=== PATIENT | male | born 1950 | race Hispanic/Latino ===

== ENCOUNTER → 2018-10-02 | Outpatient (CLI) | payer MEDICARE ==
--- NOTE | 2018-10-02 10:00 | Diagnostic Imaging Report ---
TECHNIQUE: Magnetic resonance imaging of the RIGHT SHOULDER was performed WITHOUT injected contrast. COMPARISON: None available. HISTORY: Right shoulder pain, laceration of muscle FINDINGS: MUSCLES AND TENDONS: Rotator Cuff: Tendons: Large full-thickness tear of the supraspinatus and infraspinatus tendon with retraction to the glenohumeral joint and muscle atrophy predominantly involving the infraspinatus. Partial-thickness tearing of the subscapularis. Muscles: No focal muscle atrophy. Biceps Tendon: The long head of the biceps tendon is intact and within the intertubercular groove. GLENOHUMERAL JOINT: Glenoid Labrum: Posterior labral tearing. Articular Cartilage: Partial-thickness cartilage loss AC JOINT AND ACROMION: Mild hypertrophic degenerative changes of the acromioclavicular joint. Subacromial spurring. BONE: No acute fracture. SOFT TISSUES: Otherwise, the soft tissues appear unremarkable. IMPRESSION: Large full-thickness tear of the supraspinatus and infraspinatus tendon with retraction to the glenohumeral joint and atrophy predominantly involving the infraspinatus. High riding humeral head with subacromial spurring. 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 Signed by: Dr. Joel Heath M.D. on 10/02/2018 9:57 AM
== END ==
LOC: MRI 07:20
PROVIDERS: ATTEND Specialist
DX: S46.021A Laceration of muscle(s) and tendon(s) of the rotator cuff of right shoulder, initial encounter (principal)

== ENCOUNTER 2018-10-21 10:09 | Outpatient (RCR) | payer MEDICARE | END 2018-10-26 | LOC: PT 10:09 | PROVIDERS: ATTEND Specialist | DX: S46.021D Laceration of muscle(s) and tendon(s) of the rotator cuff of right shoulder, subsequent encounter (principal); M25.511 Pain in right shoulder; M62.81 Muscle weakness (generalized) ==

== ENCOUNTER 2018-11-19 07:00 | Outpatient (RCR) | payer MEDICARE | END 2018-11-25 | LOC: PT 07:00 | PROVIDERS: ATTEND Specialist | DX: S46.021D Laceration of muscle(s) and tendon(s) of the rotator cuff of right shoulder, subsequent encounter (principal); M25.511 Pain in right shoulder; M62.81 Muscle weakness (generalized) | CPT/HCPCS: 97139 ==